=== PATIENT | female | born 1945 | race Hispanic/Latino ===

== ENCOUNTER → 2017-07-23 | Outpatient (CLI) | payer OTHER, MEDICARE | END | disposition home or self-care (01) | LOC: OIH 11:08 | PROVIDERS: ATTEND Family Medicine | DX: M25.811 Other specified joint disorders, right shoulder (principal) | CPT/HCPCS: 73030 ==

== ENCOUNTER → 2017-09-05 | Outpatient (CLI) | payer OTHER, MEDICARE | END | disposition home or self-care (01) | LOC: SHCH 12:31 | PROVIDERS: ATTEND Internal Medicine Cardiovascular Disease | DX: I65.23 Occlusion and stenosis of bilateral carotid arteries (principal); I25.10 Atherosclerotic heart disease of native coronary artery without angina pectoris; I87.2 Venous insufficiency (chronic) (peripheral) | CPT/HCPCS: 93880; 93970 ==

== ENCOUNTER → 2018-06-05 | Outpatient (CLI) | payer OTHER, MEDICARE | END | disposition home or self-care (01) | LOC: OIH 13:52 | PROVIDERS: ATTEND Family Medicine | DX: M51.37 Other intervertebral disc degeneration, lumbosacral region (principal); M54.2 Cervicalgia; M25.511 Pain in right shoulder | CPT/HCPCS: 72040; 72100; 73030 ==

== ENCOUNTER → 2018-06-10 | Outpatient (CLI) | payer OTHER, MEDICARE | END | disposition home or self-care (01) | LOC: RAH 08:30 | PROVIDERS: ATTEND Family Medicine | DX: N28.89 Other specified disorders of kidney and ureter (principal); Z90.710 Acquired absence of both cervix and uterus | CPT/HCPCS: 76700; 76856 ==

== ENCOUNTER → 2018-07-10 | Outpatient (CLI) | payer OTHER, MEDICARE ==
[~2018-07-10] MED LIST: IOHEXOL-350 75 ML VIAL IV ONE
== END | disposition home or self-care (01) ==
LOC: RAH 07:50
PROVIDERS: ATTEND Family Medicine
DX: N28.89 Other specified disorders of kidney and ureter (principal); C64.9 Malignant neoplasm of unspecified kidney, except renal pelvis
CPT/HCPCS: 74178; Q9967

== ENCOUNTER → 2018-11-15 | Outpatient (CLI) | payer OTHER, MEDICARE | END | disposition home or self-care (01) | LOC: RAH 14:44 | PROVIDERS: ATTEND Family Medicine | DX: M17.9 Osteoarthritis of knee, unspecified (principal); M71.22 Synovial cyst of popliteal space [Baker], left knee | CPT/HCPCS: 76882 ==

== ENCOUNTER 2019-11-04 01:29 | Inpatient (IN) | payer OTHER, MEDICARE ==
[~2019-11-04] VITALS: Ht 152.4 cm; Wt 56.8 kg
[2019-11-04] VITALS (13 sets, daily range): BP systolic 119–137; BP diastolic 66–80
[2019-11-04] MEDS ORDERED: NITROGLYCERIN 0.4 MG SL TAB SL ONE (01:33)
[2019-11-04] MEDS ORDERED: MORPHINE SULFATE 4 MG/1ML SYG ONE (01:37)
[2019-11-04] MEDS ORDERED: NITROGLYCERIN 1GM/1 INCH PACKET TD ONE (01:37)
[2019-11-04] MEDS ORDERED: ONDANSETRON HCL 4 MG/2 ML VIAL ONE (01:38)
[2019-11-04 01:43] LABS: BASOPHILS % (AUTO) 0.3 % (0.0-5.0); HEMATOCRIT 38.9 % (36-48); LYMPHOCYTES % (AUTO) 12.2 % (21.0-51.0); MEAN CORPUSCULAR HEMOGLOBIN 32.5 pg (27.0-33.0); MEAN CORPUSCULAR HGB CONC 33.7 g/dL (32.0-36.0); MEAN CORPUSCULAR VOLUME 96.5 fL (79-99); MONOCYTES % (AUTO) 0.8 % (3.0-13.0); NEUTROPHILS % (AUTO) 86.2 % (40.0-77.0); PLATELET COUNT (AUTO) 232 K/uL (130-400); RED BLOOD CELL COUNT(AUTO) 4.03 MIL/uL (4.00-5.50); RED CELL DISTRIBUTION WIDTH 12.4 % (11.0-15.5)
[2019-11-04 01:53] LABS: CREATININE 0.8 mg/dL (0.5-1.5); POTASSIUM 3.2 mmol/L (3.5-5.1)
[2019-11-04 01:57] LABS: INR 0.98 (0.85-1.15); PARTIAL THROMBOPLASTIN TIME 22.7 SEC (26.3-35.5); PROTHROMBIN TIME 10.6 SEC (9.6-11.6)
[2019-11-04 01:59] LABS: ALBUMIN 4.1 g/dL (3.5-5.0); BILIRUBIN,TOTAL 0.6 mg/dL (0.2-1.0); TOTAL PROTEIN, SERUM 7.5 g/dL (6.0-8.3)
[2019-11-04] MEDS ORDERED: CLOPIDOGREL BISULFATE 300 MG TAB ONE (01:59)
[2019-11-04] MEDS ORDERED: HEPARIN SODIUM 5000UNIT/ML 1ML VIAL ONE (01:59)
[2019-11-04] MEDS ORDERED: BIVALIRUDIN 250 MG/VIAL IV ONE (02:07)
[2019-11-04] MEDS ORDERED: LIDOCAINE HCL 2% 20ML ONE (02:08)
[2019-11-04] MEDS ORDERED: IOHEXOL-350 50ML VIAL IV ONE (02:08)
[2019-11-04] MEDS ORDERED: IOHEXOL 350 MG/ML 100ML INFUS..BTL IV ONE (02:08)
[2019-11-04] MEDS ORDERED: NITROGLYCERIN 2 MG/VIAL VIAL IV ONE (02:08)
[2019-11-04 02:20] LABS: B-TYPE NATRIURETIC PEPTIDE 90 pg/mL (0-100)
[2019-11-04] MEDS ORDERED: MIDAZOLAM HCL 1 MG/ML 2ML VIAL ONE (02:27)
[2019-11-04] MEDS ORDERED: HEPARIN SODIUM 1000UNIT/ML 10ML VIAL ONE (02:29)
[2019-11-04] MEDS ORDERED: ATROPINE SULFATE 0.1 MG/ML 10 ML SYG IVP ONE (02:38)
[2019-11-04] MEDS ORDERED: EPTIFIBATIDE 2 MG/ML 10 ML VIAL IVP ONE (02:46)
[2019-11-04] MEDS ORDERED: EPTIFIBATIDE 75MG/100ML BOTTLE 100 ML IV ONE (02:48)
[2019-11-04] MEDS ORDERED: SODIUM CHLORIDE 0.9% 1000ML 1,000 ML IV SCH (03:45)
[2019-11-04] MEDS ORDERED: EPTIFIBATIDE 75MG/100ML BOTTLE 100 ML IV NR (03:45)
[2019-11-04] MEDS ORDERED: NITROGLYCERIN 50 MG/D5% WATER 1 BOT IV PRN (03:45)
[2019-11-04] MEDS ORDERED: ONDANSETRON HCL 4 MG/2 ML VIAL IVP PRN (03:45)
[2019-11-04 08:59] LABS: TROPONIN I 130.27 ng/mL (0.00-0.06)
[2019-11-04] MEDS: PANTOPRAZOLE SODIUM 40 MG TABLET.DR PO SCH (09:07)
[2019-11-04] MEDS: ASPIRIN 81MG TAB.CHEW PO SCH (09:07)
[2019-11-04] MEDS: METOPROLOL TARTRATE 25 MG TAB PO SCH ×2 (09:08→20:17)
[2019-11-04] MEDS: CLOPIDOGREL BISULFATE 75 MG TAB PO SCH (09:08)
[2019-11-04] MEDS ORDERED: SIMV10TA97 PO (10:10)
[2019-11-04] MEDS ORDERED: MONT10TA26 PO (10:10)
[2019-11-04] MEDS ORDERED: ALBU0.63 IH (10:10)
[2019-11-04] MEDS ORDERED: FLUT15.845 NS (10:10)
[2019-11-04] MEDS ORDERED: PRED20TA3 PO (10:10)
--- NOTE | 2019-11-04 11:05 | NUR ---
DISCHARGE DAVID QUICK NOTIFIED THAT NO MEDS HAVE BEEN ENTERED FOR DISCHARGE.
[2019-11-04] MEDS ORDERED: ALBUTEROL SULFATE 0.083% 2.5 MG/3 ML INH IH PRN (13:00)
[2019-11-04] MEDS ORDERED: POTASSIUM CHLORIDE 20 MEQ ERTAB PO ONE (13:06)
[2019-11-04 13:43] LABS: TROPONIN I 131.82 ng/mL (0.00-0.06)
--- NOTE | 2019-11-04 13:50 | NUR ---
DISCHARGE TOMORROW MORNING DR. RIZO NOTIFIED ABOUT PATIENT'S DISCHARGE MED REC. HE STATES HE WANTS PATIENT TO STAY OVER NIGHT AND TO BE DISCHARGED IN THE MORNING. DAVID BEGUM MADE AWARE.
[2019-11-04] MEDS ORDERED: POTASSIUM CHLORIDE 20 MEQ ERTAB PO SCH ×2 (14:15)
--- NOTE | 2019-11-04 14:54 | NUR ---
DC PLAN VISITED WITH PATIENT. PATIENT LIVES WITH ALONE. INDEPENDENT ABLE TO PERFORM ADL'S. PATIENT HAS 3 HOURS PROVIDER HOURS. USES A CANE WHEN KNEE HURTS. FEELS SAFE TO RETURN HOME. Addendum: 11/04/19 at 1455 by ROBYN KRAUS RN CM Amended: Links added.
--- NOTE | 2019-11-04 16:00 | NUR ---
FAMILY UPDATED DAUGHTER DANIELLE NOTIFIED THAT PATIENT WILL BE DISCHARGED TOMORROW MORNING.
[2019-11-04] MEDS: FLUTICASONE PROPIONATE 50MCG/SPRAY 16 GM BOTTLE NS SCH (21:00)
[2019-11-04] MEDS ORDERED: ATORVASTATIN CALCIUM 20 MG TABLET PO SCH (21:00)
[2019-11-04] MEDS ORDERED: LISINOPRIL 5 MG TABLET PO SCH (21:00)
[2019-11-04] MEDS ORDERED: SIMVASTATIN 10 MG TABLET PO SCH (21:00)
[2019-11-05] VITALS: BP 102/61
--- NOTE | 2019-11-05 01:45 | NUR ---
RESUMED CARE FOR PATIENT. PATIENT AWAKE AND ALERT. VOICES ALL NEEDS. NO COMPLAINTS OF PAIN VOICED AT THIS TIME. RESP EVEN AND UNLABORED. NO SOB NOTED. ON ROOM AIR. VITALS STABLE. AFEBRILE. DRESSING TO RIGHT GROIN IN PLACE. AREA SOFT AND TENDER TO TOUCH. PEDAL PULES PRESENT BILATERALLY. TOTAL CARE RENDERED Q2H AND PRN. NO SIGNS OF DISTRESS NOTED. CALL LIGHT WITHIN REACH. WILL CONTINUE TO BE OBSERVED. Addendum: 11/05/19 at 0557 by NEVAEH GARCIA RN RN Amended: Links added.
[2019-11-05 03:53] VITALS: BP 102/59
[2019-11-05 04:51] LABS: HEMATOCRIT 35.6 % (36-48); MEAN CORPUSCULAR HEMOGLOBIN 31.7 pg (27.0-33.0); MEAN CORPUSCULAR HGB CONC 32.6 g/dL (32.0-36.0); MEAN CORPUSCULAR VOLUME 97.3 fL (79-99); RED BLOOD CELL COUNT(AUTO) 3.66 MIL/uL (4.00-5.50); WHITE BLOOD COUNT (AUTO) 14.1 K/uL (4.8-10.8)
[2019-11-05 05:11] LABS: CREATININE 0.6 mg/dL (0.5-1.5); POTASSIUM 4.5 mmol/L (3.5-5.1)
[2019-11-05] MEDS: PANTOPRAZOLE SODIUM 40 MG TABLET.DR PO SCH (05:15)
[2019-11-05 08:00] VITALS: BP 97/56
[2019-11-05] MEDS: METOPROLOL TARTRATE 25 MG TAB PO SCH (08:29)
[2019-11-05] MEDS: CLOPIDOGREL BISULFATE 75 MG TAB PO SCH (08:31)
--- NOTE | 2019-11-05 08:45 | NUR ---
DR. RIZO IN TO SEE PT. REMOVED DRESSING FROM RT. GROIN AREA. SOME BRUISING NOTED OTHERWISE SOFT WITH VERY LITTLE PAIN WHEN PRESSED ON.
[2019-11-05] MEDS ORDERED: ATOR10 PO (08:50)
[2019-11-05] MEDS ORDERED: CLOP75TA14 PO (08:50)
[2019-11-05] MEDS ORDERED: ASPI-556 PO (08:50)
[2019-11-05] MEDS ORDERED: METO-408 PO (08:50)
[2019-11-05] MEDS ORDERED: LISI2.5T2 PO (08:50)
[2019-11-05] MEDS: FLUTICASONE PROPIONATE 50MCG/SPRAY 16 GM BOTTLE NS SCH (09:00)
[2019-11-05] MEDS ORDERED: MONTELUKAST SODIUM 10 MG TAB PO SCH (09:00)
[2019-11-05] MEDS ORDERED: PREDNISONE 20 MG TABLET PO SCH (09:00)
[2019-11-05] MEDS: ASPIRIN 81MG TAB.CHEW PO SCH (09:45)
--- NOTE | 2019-11-05 12:30 | NUR ---
DISCHARGED NOW USING TEACH BACK. VERBALIZED UNDERSTANDING OF ALL INST. GIVEN AND ALSO WENT OVER INST. VIA PHONE WITH A DAUGHTER WHOM IS A REGISTERED NURSE. APPT. FOR FOLLOW GIVEN PLUS RX WAS SENT TO PHARM. OF CHOICE. SALINE LOCK X2 REMOVED, DCD HEART MONITOR. INST. TO KEEP AN EYE RT. GROIN.FOR SWELLING OR HEMATOMA.
[2019-11-05] MEDS ORDERED: LISINOPRIL 2.5 MG TABLET PO SCH (21:00)
== END 2019-11-05 12:31 | disposition home or self-care (01) | DRG 246 ==
LOC: EDH 01:29 → EDHIP 01:42 → OBSVTOIN 01:42 → DAHIP 04:30
PROVIDERS: ADMIT Internal Medicine; ATTEND Internal Medicine
PROC: 3E073PZ Introduction of Platelet Inhibitor into Coronary Artery, Percutaneous Approach (ICD-10-PCS; principal; 2019-11-04)
PROC: 027034Z Dilation of Coronary Artery, One Artery with Drug-eluting Intraluminal Device, Percutaneous Approach (ICD-10-PCS; 2019-11-04)
PROC: 4A023N7 Measurement of Cardiac Sampling and Pressure, Left Heart, Percutaneous Approach (ICD-10-PCS; 2019-11-04)
PROC: B211YZZ Fluoroscopy of Multiple Coronary Arteries using Other Contrast (ICD-10-PCS; 2019-11-04)
PROC: B41FYZZ Fluoroscopy of Right Lower Extremity Arteries using Other Contrast (ICD-10-PCS; 2019-11-04)
DX: I21.19 ST elevation (STEMI) myocardial infarction involving other coronary artery of inferior wall (principal); I50.41 Acute combined systolic (congestive) and diastolic (congestive) heart failure; E11.9 Type 2 diabetes mellitus without complications; E78.5 Hyperlipidemia, unspecified; I08.0 Rheumatic disorders of both mitral and aortic valves; I25.10 Atherosclerotic heart disease of native coronary artery without angina pectoris; Z79.02 Long term (current) use of antithrombotics/antiplatelets; Z79.82 Long term (current) use of aspirin; Z79.899 Other long term (current) drug therapy; Z90.710 Acquired absence of both cervix and uterus; Z88.2 Allergy status to sulfonamides; I11.0 Hypertensive heart disease with heart failure
CPT/HCPCS: 36415; 71045; 80048; 80053; 80061; 82550; 82948; 83874; 83880; 84484; 85025; 85027; 85347; 85610; 85730; 93005; 93306; 93356; 93454; 94664; 99156; 99157; 99291; C1725; C1760; C1769; C1887; C1894; C9600; G0378; J0461; J0583; J1327; J1644; J2250; J2270; J2405; J3490; Q9967

== ENCOUNTER → 2019-12-25 | Outpatient (CLI) | payer OTHER, MEDICARE ==
[~2019-12-25] MED LIST changes: +ASPI-556 PO; +ATOR10 PO; +CLOP75TA14 PO; -IOHEXOL-350 75 ML VIAL IV ONE; +LISI2.5T2 PO; +METO-408 PO
== END | disposition home or self-care (01) ==
LOC: SHCH 08:33
PROVIDERS: ATTEND Internal Medicine Cardiovascular Disease
DX: I87.2 Venous insufficiency (chronic) (peripheral) (principal)
CPT/HCPCS: 93970

== ENCOUNTER → 2020-05-13 | Outpatient (CLI) | payer OTHER, MEDICARE | END | disposition home or self-care (01) | LOC: SHCH 12:45 | PROVIDERS: ATTEND Internal Medicine Cardiovascular Disease | DX: I73.9 Peripheral vascular disease, unspecified (principal) | CPT/HCPCS: 93925 ==

== ENCOUNTER → 2022-07-12 | Outpatient (CLI) | payer OTHER, MEDICARE ==
[~2022-07-12] MED LIST changes: +CLOP-31 PO; -CLOP75TA14 PO; +LISI2.5T13 PO; -LISI2.5T2 PO
== END | disposition home or self-care (01) ==
LOC: RAH 14:21
PROVIDERS: ATTEND Internal Medicine
DX: S00.83XA Contusion of other part of head, initial encounter (principal); X58.XXXA Exposure to other specified factors, initial encounter; Y93.89 Activity, other specified; Y92.89 Other specified places as the place of occurrence of the external cause; Y99.8 Other external cause status
CPT/HCPCS: 70450

== ENCOUNTER → 2023-11-08 | Outpatient (CLI) | payer OTHER, MEDICARE | END | disposition home or self-care (01) | LOC: RAH 13:19 | PROVIDERS: ATTEND Internal Medicine | DX: M85.89 Other specified disorders of bone density and structure, multiple sites (principal); Z78.0 Asymptomatic menopausal state | CPT/HCPCS: 77080 ==

== ENCOUNTER → 2024-06-18 | Outpatient (CLI) | payer OTHER, MEDICARE ==
--- NOTE | 2024-06-18 09:56 | HMCIMG ---
US ABDOMINAL COMPLETE REASON: llq pain COMPARISON: None FINDINGS: There is normal sonographic appearance of the liver. There are no focal mass lesions. The liver is not enlarged.There is a normal-appearing gallbladder. Right kidney appears normal. There are some cortical scarring lower pole left kidney, there is a history of previous mass removal, there is no evidence of residual or recurrent mass. Spleen and common duct appear normal. Aorta and inferior vena cava appear normal. The pancreas appears normal as well. Urinary bladder was imaged and appears normal as well. IMPRESSION: 1. No acute finding on abdomen sonogram.
== END | disposition home or self-care (01) ==
LOC: RAH 08:19
PROVIDERS: ATTEND Internal Medicine
DX: R06.09 Other forms of dyspnea (principal); R10.11 Right upper quadrant pain
CPT/HCPCS: 36415; 76700; 83880

== ENCOUNTER → 2024-07-01 | Outpatient (CLI) | payer OTHER, MEDICARE | END | disposition home or self-care (01) | LOC: SHCH 08:48 | PROVIDERS: ATTEND Internal Medicine Cardiovascular Disease | DX: R06.09 Other forms of dyspnea (principal); R01.0 Benign and innocent cardiac murmurs | CPT/HCPCS: 93306 ==